=== PATIENT | male | born 2000 | race Caucasian/White ===

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

== ENCOUNTER 2023-10-02 09:40 | Emergency (ER) | payer OTHER ==
[2023-10-02] MEDS ORDERED: DIPHTH,PERTUSS(ACELL),TET 0.5 ML DISP.SYRIN IM ONE ×2 (10:02→10:04)
[2023-10-02 10:11] VITALS: BP 142/83; PULSE 85; RESP 15; TEMP 99; BMI 26.7
== END 2023-10-02 11:00 | disposition home or self-care (01) ==
LOC: FER 09:40
PROC: 3E0234Z Introduction of Serum, Toxoid and Vaccine into Muscle, Percutaneous Approach (ICD-10-PCS; principal; 2023-10-02)
DX: S92.422A Displaced fracture of distal phalanx of left great toe, initial encounter for closed fracture (principal); M79.675 Pain in left toe(s); W20.8XXA Other cause of strike by thrown, projected or falling object, initial encounter; Y93.89 Activity, other specified; Y92.009 Unspecified place in unspecified non-institutional (private) residence as the place of occurrence of the external cause
CPT/HCPCS: 73660-TC-LT-FY; 90715; 99283-25

== ENCOUNTER 2023-11-23 12:47 | Emergency (ER) | payer OTHER ==
[2023-11-23] MEDS ORDERED: DALBAVANCIN HCL 500 MG VIAL (RESTRICTED TO ID ONLY) IVPB ONE (12:56)
[2023-11-23 12:57] VITALS: BP 134/85; PULSE 89; RESP 18; TEMP 98.2; BMI 25.0
[2023-11-23] MEDS: DALBAVANCIN HCL 1,500 MG in DEXTROSE 5%-WATER - 500 ML IVPB ONE (13:17)
== END 2023-11-23 14:40 | disposition home or self-care (01) ==
LOC: FER 12:47
DX: S91.202A Unspecified open wound of left great toe with damage to nail, initial encounter (principal); W20.8XXA Other cause of strike by thrown, projected or falling object, initial encounter
CPT/HCPCS: 99284-25; J0875